=== PATIENT | male | born 1950 | race Caucasian/White ===

== ENCOUNTER 2019-12-09 09:54 | Outpatient (CLI) | payer MEDICARE, BC ==
[~2019-12-09 09:54] MED LIST: ACYC-114 PO; ASPI-496 PO; HYDR-36 PO; HYDR12.517 PO; LOSA50TA14 PO; METH750T87 PO; METO-99 PO; METO50TA82 PO; PILO5TAB PO; VERA360C2 PO
== END 2019-12-09 23:59 | disposition home or self-care (01) ==
LOC: CFH 09:54
PROVIDERS: ATTEND Internal Medicine Cardiovascular Disease
DX: I08.3 Combined rheumatic disorders of mitral, aortic and tricuspid valves (principal); Z87.891 Personal history of nicotine dependence
CPT/HCPCS: 93306

== ENCOUNTER 2020-06-27 06:16 | Day surgery (SDC) | payer MEDICARE, BC ==
[~2020-06-27] VITALS: Ht 182.9 cm; Wt 92.7 kg
[~2020-06-27 06:16] MED LIST changes: +HYDR-3246 PO; -HYDR-36 PO
[2020-06-27] MEDS ORDERED: LACTATED RINGERS 1,000 ML IV SCH (06:56)
[2020-06-27] MEDS ORDERED: CHLORHEXIDINE 15 ML UDC MM ONE (07:00)
[2020-06-27 07:13] VITALS: BP 159/96
[2020-06-27] MEDS ORDERED: MIDAZOLAM 1 MG/ML, 2ML ONE (07:18)
[2020-06-27] MEDS ORDERED: FENTANYL PF 100 MCG/2ML ONE (07:18)
[2020-06-27] MEDS ORDERED: AMLO2.5T5 PO (07:23)
[2020-06-27] MEDS ORDERED: FLUT9.9S16 NS (07:23)
[2020-06-27] MEDS ORDERED: AZEL137S4 NAS (07:23)
[2020-06-27 07:29] LABS: ALANINE AMINOTRANSFERASE 29 U/L (12-78); ALBUMIN 4.3 g/dL (3.4-5.0); ANION GAP 4 mmol/L (5-15); CALCIUM 9.6 mg/dL (8.5-10.1); CHLORIDE 108 mmol/L (98-107); CREATININE 1.13 mg/dL (0.7-1.3)
[2020-06-27] MEDS ORDERED: LABETALOL 5MG/ML, 20ML IV PRN (07:30)
[2020-06-27] MEDS ORDERED: PROMETHAZINE 25 MG/ML, 1ML IVPush PRN (07:30)
[2020-06-27] MEDS ORDERED: MEPERIDINE/PF 25MG/0.5ML IVPush PRN (07:30)
[2020-06-27] MEDS ORDERED: HYDROmorphone 1 MG/ML, 1ML INJ IVPush PRN (07:30)
[2020-06-27] MEDS ORDERED: FENTANYL PF 100 MCG/2ML IV PRN (07:30)
[2020-06-27] MEDS ORDERED: OXYcodone 5 MG/5 ML ORAL.SOL UDC PO PRN (07:30)
[2020-06-27] MEDS ORDERED: DIPHENHYDRAMINE 50 MG/ML, 1ML IVPush PRN (07:30)
[2020-06-27] MEDS ORDERED: hydrALAzine 20 MG/ML, 1ML IV PRN (07:30)
[2020-06-27] MEDS ORDERED: HALOPERIDOL 5 MG/ML IV PRN (07:30)
[2020-06-27 07:32] LABS: ALKALINE PHOSPHATASE 79 U/L (45-117); BILIRUBIN,TOTAL 1.2 mg/dL (0.2-1.0); TOTAL PROTEIN 7.6 g/dL (6.4-8.2)
[2020-06-27] MEDS ORDERED: DEXAMETHASONE 4 MG/ML, 1ML ONE (08:09)
[2020-06-27] MEDS ORDERED: ROCURONIUM 10MG/ML,5ML ONE (08:09)
[2020-06-27] MEDS ORDERED: PROPOFOL 10 MG/ML, 20ML ONE (08:09)
[2020-06-27] MEDS ORDERED: CEFAZOLIN 1,000 MG ONE (08:09)
[2020-06-27] MEDS ORDERED: GLYCOPYRROLATE 0.2MG/1ML, 5ML ONE (08:09)
[2020-06-27] MEDS ORDERED: SUCCINYLCHOLINE 20 MG/ML, 10ML ONE (08:09)
[2020-06-27] MEDS ORDERED: NEOSTIGMINE 1 MG/ML, 10ML ONE (08:09)
[2020-06-27] MEDS ORDERED: ONDANSETRON 2MG/ML, 2ML ONE ×2 (08:09→08:10)
[2020-06-27] MEDS ORDERED: SUGAMMADEX 200 MG/2 ML IVPush ONE ×2 (08:10)
== END 2020-06-27 09:30 | disposition home or self-care (01) ==
LOC: OUT 06:16
PROVIDERS: ATTEND Otolaryngology
DX: C01 Malignant neoplasm of base of tongue (principal); J38.7 Other diseases of larynx; I10 Essential (primary) hypertension; I42.9 Cardiomyopathy, unspecified; Z11.59 Encounter for screening for other viral diseases; Z79.82 Long term (current) use of aspirin; Z72.89 Other problems related to lifestyle; Z87.891 Personal history of nicotine dependence; Z98.890 Other specified postprocedural states
CPT/HCPCS: 31535; 36415; 80053; 87635; 88305; 93005; J0330; J1100; J2250; J2405; J2704; J3010; J7120; J0690; J2710

== ENCOUNTER → 2020-10-31 | Outpatient (CLI) | payer MEDICARE, BC ==
[~2020-10-31] MED LIST changes: +AMLO2.5T5 PO; +AZEL137S4 NAS; +FLUT9.9S16 NS
== END | disposition home or self-care (01) ==
LOC: CFH 12:57
PROVIDERS: ATTEND Registered Nurse
DX: I08.3 Combined rheumatic disorders of mitral, aortic and tricuspid valves (principal); I11.9 Hypertensive heart disease without heart failure; I42.1 Obstructive hypertrophic cardiomyopathy
CPT/HCPCS: 93306